=== PATIENT | female | born 1995 | race American Indian/Alaskan Native ===

== ENCOUNTER 2017-05-24 14:51 | Emergency (ER) | payer OTHER ==
[~2017-05-24] VITALS: Ht 165.1 cm; Wt 68.0 kg
== END 2017-05-24 15:42 | disposition home or self-care (01) ==
LOC: ED 14:51
DX: O99.89 Other specified diseases and conditions complicating pregnancy, childbirth and the puerperium (principal); R55 Syncope and collapse; Z3A.00 Weeks of gestation of pregnancy not specified
CPT/HCPCS: 76815; 99284

== ENCOUNTER 2017-06-05 18:29 | Emergency (ER) | payer OTHER ==
[~2017-06-05] VITALS: Ht 165.1 cm; Wt 69.8 kg
== END 2017-06-05 21:27 | disposition home or self-care (01) ==
LOC: ED 18:29
DX: O99.89 Other specified diseases and conditions complicating pregnancy, childbirth and the puerperium (principal); M25.512 Pain in left shoulder; Z87.891 Personal history of nicotine dependence; Z3A.34 34 weeks gestation of pregnancy
CPT/HCPCS: 99282

== ENCOUNTER 2017-07-07 05:13 | Inpatient (IN) | payer OTHER ==
[~2017-07-07] VITALS: Ht 167.6 cm; Wt 61.0 kg
--- NOTE | 2017-07-07 07:42 | PR ---
[facility] [address] [place], [place] [address] Signed Progress Notes IP Datetime Report Generated by CPN: 07/07/2017 07:42 PROGRESS NOTES: [id number] Impression: Normal progression of labor Procedures: Artificial ROM; Sterile Vag Exam; Epidural Placement Plan: Continue present management; Anticipate Vaginal Delivery Informed Consent Obtain: Vaginal Delivery; Risks, Benefits and Alternatives Discussed VITAL SIGNS: [id number] Vital Signs: Reviewed EXAM: [id number] Dilatation: 9.0 Effacement: 95 Station: 0 Uterine Contractions: every two to three minutes MEMBRANES: [id number] Membrane Status: Bulging ROM Note: amniotomy performed - clear moderate amount of fluid Comments: patient with bloody show. AROM performed. Epidural in place. Fetus A: [id number] FHR Baseline: 130's Variability: Moderate 6-25bpm Accelerations: 15X15 Decelerations: None FHR Category: Category I Presentation: Vertex Comments on Fetus A: reactive Fetus B: [id number] Signing Physician: Paulina Davenport MD CC: *Electronically Signed* 07/07/17 0742 PAULINA DAVENPORT MD PATIENT NAME: JEREMY WOLFF PROGRESS NOTE DATE OF : 95 PHYSICIAN: PAULINA DAVENPORT MD RPT #: [id number] REPORT IS CONFIDENTIAL AND NOT TO BE RELEASED WITHOUT AUTHORIZATION
== END 2017-07-08 14:27 | disposition home or self-care (01) | DRG 775 ==
LOC: FBCO 05:13 → FBC 06:00
PROVIDERS: ADMIT Obstetrics & Gynecology
PROC: 10E0XZZ Delivery of Products of Conception, External Approach (ICD-10-PCS; principal; 2017-07-07)
PROC: 10907ZC Drainage of Amniotic Fluid, Therapeutic from Products of Conception, Via Natural or Artificial Opening (ICD-10-PCS; 2017-07-07)
PROC: 00HU33Z Insertion of Infusion Device into Spinal Canal, Percutaneous Approach (ICD-10-PCS; 2017-07-07)
PROC: 3E0R3BZ Introduction of Anesthetic Agent into Spinal Canal, Percutaneous Approach (ICD-10-PCS; 2017-07-07)
DX: O99.02 Anemia complicating childbirth (principal); Z3A.38 38 weeks gestation of pregnancy; Z37.0 Single live birth
CPT/HCPCS: 01960; 36415; 85027; J2590; J3010; J7120

== ENCOUNTER 2018-10-22 19:50 | Emergency (ER) | payer OTHER ==
[~2018-10-22] VITALS: Ht 167.6 cm; Wt 72.6 kg
[2018-10-22] MEDS ORDERED: ADVIL200 MG PO (20:12)
[2018-10-22] MEDS ORDERED: ANUSOL-HC30 GM PR (20:51)
== END 2018-10-22 21:20 | disposition home or self-care (01) ==
LOC: ED 19:50
DX: K64.4 Residual hemorrhoidal skin tags (principal); F17.200 Nicotine dependence, unspecified, uncomplicated; Z88.1 Allergy status to other antibiotic agents; Z88.2 Allergy status to sulfonamides; Z79.899 Other long term (current) drug therapy
CPT/HCPCS: 99282

== ENCOUNTER 2020-01-11 14:38 | Emergency (ER) | payer OTHER ==
[~2020-01-11] VITALS: Ht 167.6 cm; Wt 72.6 kg
--- OUTSIDE RECORDS SUMMARY | ~2020-01-11 | XMS | Clinical Summary ---
Demographics + + + | Address | [address] | | | [place] [address] | + + + | Home Phone | | + + + | Preferred Language | Unknown | + + + | Marital Status | Single | + + + | Congregational Affiliation | Unknown | + + + | Race | Unknown | + + + | Ethnic Group | Unknown | + + + Author + + + | Author | [facility] (Historical as of | | | 04-15-19) | + + + | Organization | [facility] (Historical as of | | | 04-15-19) | + + + | Address | Unknown | + + + | Phone | Unavailable | + + + Support + + +---------+ + | Name | Relationship | Address | Phone | + + +---------+ + | Speedis,Jarad | ECON | Unknown | | + + +---------+ + Care Team Providers + +------+ + | Care Starcher And Tenter Range Feeder Name | Role | Phone | + +------+ + | Loco Duran | PP | | + +------+ + Allergies Not on File Current Medications No known medications Active Problems Not on file Family History + +------+--------+ + | Relation | Name | Status | Comments | + +------+--------+ + | Father | | Alive | | + +------+--------+ + | Mother | | Alive | | + +------+--------+ + Social History + +-------+ +--------+------+ | Tobacco Use | Types | Packs/Day | Years | Date | | | | | Used | | + +-------+ +--------+------+ | Former Smoker | | | | | + +-------+ +--------+------+ + +---+---+---+ | Smokeless Tobacco: | | | | | Never Used | | | | + +---+---+---+ + + +---------+ + | Alcohol Use | Drinks/We | oz/Week | Comments | | | ek | | | + + +---------+ + | No | | | | + + +---------+ + + + + | Sex Assigned at | Date Recorded | | | | + + + | Not on file | | + + + Last Filed Vital Signs + + + + | Vital Sign | Reading | Time Taken | + + + + | Blood Pressure | - | - | + + + + | Pulse | - | - | + + + + | Temperature | - | - | + + + + | Respiratory Rate | - | - | + + + + | Oxygen Saturation | 97% | 09/15/2018 1:14 PM PST | + + + + | Inhaled Oxygen | - | - | | Concentration | | | + + + + | Weight | 75.3 kg (165 lb 14.4 | 09/15/2018 1:14 PM PST | | | oz) | | + + + + | Height | 167.6 cm (5' 6") | 09/15/2018 1:14 PM PST | + + + + | Body Mass Index | 26.78 | 09/15/2018 1:14 PM PST | + + + + Plan of Treatment + + + + + | Health Maintenance | Due Date | Last Done | Comments | + + + + + | Vaccine: HPV (1 - | | | | | Female 3-dose | 0 | | | | series) | | | | + + + + + | Vaccine: | | | | | Dtap/Tdap/Td (1 - | 4 | | | | Tdap) | | | | + + + + + | Cervical Cancer | | | | | Screening (Pap) | 6 | | | + + + + + | Vaccine: Influenza | | | | | (Season Ended) | 0 | | | + + + + + Results Not on filefrom Last 3 Months Insurance + +--------+ +------+-------+ + | Payer | Benefi | Subscriber | Type | Phone | Address | | | t Plan | ID | | | | | | / | | | | | | | Group | | | | | + +--------+ +------+-------+ + | MEDICAID | [employer] | [id number] | | | [address] | | | [place] | | | | [place] | | | [place] | | | | [phone] | | | HAND CLOTH CUTTER | | | | | + +--------+ +------+-------+ + + +--------+ +--------+ + + | Guarantor Name | Accoun | Relation to | Date | Phone | Billing Address | | | t Type | Patient | of | | | | | | | | | | + +--------+ +--------+ + + | JEREMY CANO | Person | Self | [birth year] | Home: | [address] | | | al/Fam | | 1994 | [phone] | [place] | | | [place] | | | [phone] | [address] | + +--------+ +--------+ + +
--- OUTSIDE RECORDS SUMMARY | ~2020-01-11 | XMS | Clinical Summary ---
Demographics + + + | Address | [address] | | | [place] [address] | + + + | Home Phone | | + + + | Preferred Language | Unknown | + + + | Marital Status | Single | + + + | Rastafarian Affiliation | Unknown | + + + | Race | Unknown | + + + | Ethnic Group | Unknown | + + + Author + + + | Author | [facility] (Historical as of | | | 04-15-19) | + + + | Organization | [facility] (Historical as of | | | 04-15-19) [...] Team Providers + +------+ + | Care Palletizer Operator Name | Role | Phone | + [...] +------+-------+ + | MEDICAID | [employer] | [id number] | | | [address] | | | [place] | | | | [place] | | | [place] | | | | [phone] | | | BEAUTY SALES ADVISOR | | | | | + +--------+ [...] Self | [birth year] | Home: | [address] | | | al/Fam | | 1994 | [phone] | [place] | | | [place] | | | [phone] | [phone] | + +--------+ +--------+ + +
--- OUTSIDE RECORDS SUMMARY | ~2020-01-11 | XMS | Clinical Summary ---
Demographics + + + | Address | [address] | | | [place] [address] | + + + | Home Phone | | + + + | Preferred Language | Unknown | + + + | Marital Status | Single | + + + | Sabianism Affiliation | Unknown | + + + | Race | Unknown | + + + | Ethnic Group | Unknown | + + + Author + + + | Author | [facility] | | | and [place] | + + + | Organization | [facility] | | | and [place] | + + + | Address | Unknown | + + + | Phone | Unavailable | + + + Support + + +---------+ + | Name | Relationship | Address | Phone | + + +---------+ + | Jarad Speedis | ECON | Unknown | | + + +---------+ + | Margo Cano | ECON | Unknown | | + + +---------+ + Care Team Providers + +------+ + | Care Production Zone Leader Name | Role | Phone | + +------+ + | No, Physician | PCP | Unavailable | + +------+ + Allergies + + + + + + | Active Allergy | Reactions | Severity | Noted | Comments | | | | | Date | | + + + + + + | Cefazolin | Rash | Low | 12/15/20 | Pt stated allergy | | | | | 16 | to Cefazolin but | | | | | | chart says Keflex. | + + + + + + | Sulfamethoxazole-Tri | Hives | | 08/13/20 | | | methoprim | | | 16 | | + + + + + + Medications + + + +---------+------+------+-------+ | Medication | Sig | Dispensed | Refills | Star | End | Statu | | | | | | t | Date | s | | | | | | Date | | | + + + +---------+------+------+-------+ | ibuprofen | Take 1 tablet by | 30 | 0 | 12/ | | Activ | | (ADVIL,MOTRIN) 600 | mouth every 6 hours | tablet | | /20 | | e | | MG tablet | as needed for Pain. | | | 16 | | | + + + +---------+------+------+-------+ | docusate sodium | Take 200 mg by mouth | 30 | 0 | 12/1 | | Activ | | (COLACE) 100 MG | Twice daily as | capsule | | 7/20 | | e | | capsule | needed for | | | 16 | | | | | Constipation. | | | | | | + + + +---------+------+------+-------+ Active Problems Not on file Family History + +------+--------+ + | Relation | Name | Status | Comments | + +------+--------+ + | Father | | Alive | | + +------+--------+ + | Mother | | Alive | | + +------+--------+ + Social History + +-------+ +--------+ + | Tobacco Use | Types | Packs/Day | Years | Date | | | | | Used | | + +-------+ +--------+ + | Former Smoker | | 0.25 | | Quit: 05/14/2016 | + +-------+ +--------+ + + + +---------+ + | Alcohol Use | Drinks/Week | oz/Week | Comments | + + +---------+ + | No | | | | + + +---------+ + + + + | Sex Assigned at | Date Recorded | | | | + + + | Not on file | | + + + + + + + | Job Start Date | Occupation | Industry | + + + + | Not on file | Not on file | Not on file | + + + + + + + + | Travel History | Travel Start | Travel End | + + + + + + | No recent travel history available. | + + Last Filed Vital Signs + + + + + | Vital Sign | Reading | Time Taken | Comments | + + + + + | Blood Pressure | 113/78 | 08/15/2016 7:46 AM | | | | | PST | | + + + + + | Pulse | 61 | 08/15/2016 7:46 AM | | | | | PST | | + + + + + | Temperature | 36.1 C (97 F) | 08/15/2016 7:46 AM | | | | | PST | | + + + + + | Respiratory Rate | 16 | 08/15/2016 7:46 AM | | | | | PST | | + + + + + | Oxygen Saturation | 98% | 08/14/2016 8:00 PM | | | | | PST | | + + + + + | Inhaled Oxygen | - | - | | | Concentration | | | | + + + + + | Weight | 75.3 kg (165 lb 14.4 | 09/15/2018 1:21 PM | | | | oz) | PST | | + + + + + | Height | 167.6 cm (5' 6") | 09/15/2018 1:21 PM | | | | | PST | | + + + + + | Body Mass Index | 26.78 | 09/15/2018 1:21 PM | | | | | PST | | + + + + + Plan of Treatment + + + + + | Health Maintenance | Due Date | Last Done | Comments | + + + + + | Vaccine: | | | | | Dtap/Tdap/Td (1 - | 6 | | | | Tdap) | | [...] filefrom Last 3 Months Insurance + +--------+ +--------+ +---------+--------+ | Payer | Benefi | Subscriber | Effect | Phone | Address | Type | | | t Plan | ID | beatriz | | | | | | / | | Dates | | | | | | Group | | | | | | + +--------+ +--------+ +---------+--------+ | [employer] | [employer] | [id number] | 08/12/ | [phone] | | Medica | | MEDICAID HMO | HEALTH | | 2016-P | 1 | | id | | | MDCD | | resent | | | | | | [place]MO [place] | | | | | | + +--------+ +--------+ +---------+--------+ + +--------+ +--------+ + + | Guarantor Name | Accoun | Relation to | Date | Phone | Billing Address | | | t Type | Patient | of | | | | | | | | | | + +--------+ +--------+ + + | Rand Cano | Person | Self [birth year] | [address] | | | al/Fam | | 1994 | [phone] | [place] [address] | | | [place] | | | [address] (Home) | | + +--------+ +--------+ + + Advance Directives + + + + + | Type | Date Recorded | Patient | Explanation | | | | Manager Career | | + + + + + | Power of | | | | | Lathe Tender | | | | + + + + + | Advance | 08/13/2016 | | | | Directive | 11:52 AM | | | + + + + + + + + + + | Code Status | Date | Date | Comments | | | Activated | Inactivated | | + + + + + | Full Code | 08/13/2016 | 08/13/2016 | | | | 7:02 AM | 2:31 PM | | + + + + +
--- OUTSIDE RECORDS SUMMARY | ~2020-01-11 | XMS | Encounter Summary ---
Demographics + + + | Address | [address] | | | [place] [address] | + + + | Home Phone | | + + + | Preferred Language | Unknown | + + + | Marital Status | Single | + + + | Mormon Affiliation | Unknown | + + + | Race | Unknown | + + + | Ethnic Group | Unknown | + + + Author + + + | Author | [facility] | | | and [place] | + + + | Organization | [facility] | | | and [place] [...] Team Providers + +------+ + | Care Cda Teacher Name | Role | Phone | + +------+ + | No, Physician | PCP | Unavailable | + +------+ + Reason for Referral Evaluate & Treat (Routine) +--------+ + + + + + | Status | Reason | Specialty | Diagnoses / | Referred By | Referred To | | | | | Procedures | Contact | Contact | +--------+ + + + + + | Closed | Specialty | | Diagnoses | | | | | Services | Services / | Late | Andrea, | | | | Required | | | Shannon Salas, | | | | | and | care in | DO [address] | [address] | [address] | | | | | | trimester | [place], | | | | | | | [place] [address] | | | | | | | Phone: | | | | | | | [phone] | | | | | | | Fax: | | | | | | | [phone] | | +--------+ + + + + + (Routine) +--------+ + + + + + | Status | Reason | Specialty | Diagnoses / | Referred By | Referred To | | | | | Procedures | Contact | Contact | +--------+ + + + + + | Closed | Specialty | | Diagnoses | | | | | Services | and | Late | Andrea, | | | | Required | | | Shannon Salas, | | | | | | care in | DO [address] | | [address] | [address] | | | | | | trimester | [place], | | | | | | | [place] [address] | | | | | | | Phone: | | | | | | | [phone] | | | | | | | Fax: | | | | | | | [phone] | | +--------+ + + + + + Reason for Visit Auth/Cert +--------+--------+ + + + + | Status | Reason | Specialty | Diagnoses / | Referred By | Referred To | | | | | Procedures | Contact | Contact | +--------+--------+ + + + + | | | | | | | +--------+--------+ + + + + Encounter Details +--------+ + + + + | Date | Type | Department | Care Team | Description | +--------+ + + + + | 08/13/ | Hospital | [facility] | Shannon Mendez | Late care | | 2016 - | Encounter | [facility] | DO [address] | in third trimester | | | | [address] | [facility] | (Primary Dx) | | 08/15/ | | [place] | [place] [address] | | | 2015 | | [address] | [phone] | | | | | [phone] | | | +--------+ + + + + Social History + +-------+ +--------+ + | Tobacco Use | Types | Packs/Day | Years | Date | | | | | Used | | + +-------+ +--------+ + | Former Smoker | | 0.25 | | Quit: 05/14/2016 | + +-------+ +--------+ + + +---+---+---+ | Smokeless Tobacco: | | [...] recent travel history available. | + + documented as of this encounter Last Filed Vital Signs + + + [...] + + + + | Weight | 74.8 kg (165 lb) | 08/13/2016 9:22 AM | | | | | PST | | + + + + + | Height | 165.1 cm (5' 5") | 08/13/2016 7:00 AM | | | | | PST | | + + + + + | Body Mass Index | 27.46 | 08/13/2016 7:00 AM | | | | | PST | | + + + + + documented in this encounter Functional Status + + + + | Functional Status | Response | Date of Assessment | + + + + | Are you deaf or do you have serious | No | 08/13/2016 | | difficulty hearing? | | | + + + + | Are you blind or do you have serious | No | 08/13/2016 | | difficulty seeing, even when wearing | | | | glasses? | | | + + + + | Do you have serious difficulty walking or | No | 08/13/2016 | | climbing stairs? (5 years old or older) | | | + + + + | Do you have difficulty dressing or bathing? | No | 08/13/2016 | | (5 years old or older) | | | + + + + | Because of a physical, mental, or emotional | No | 08/13/2016 | | condition, do you have difficulty doing | | | | errands alone such as visiting a doctor's | | | | office or shopping? [15 years old or | | | | older)] | | | + + + + + + + + | Cognitive Status | Response | Date of Assessment | + + + + | Because of a physical, mental, or emotional | No | 08/13/2016 | | condition, do you have serious difficulty | | | | concentrating, remembering, or making | | | | decisions? (5 years old or older) | | | + + + + documented as of this encounter Discharge Summaries Shannon Mendez DO - 08/15/2016 8:32 AM PSTFormatting of this note might be differe nt from the original. Physician Discharge Summary Patient ID: Rand Sandysully [id number] 21 y.o. 1995 Admit date: 08/13/2016 Discharge date and time: 08/15/16 Admitting Physician: Shannon Mendez DO Discharge Physician: Shannon Mendez DO Admission Diagnoses: 1. Late and limited PNC 2. IUP @ 40w5d Discharge Diagnoses: same with delivered Admission Condition: good Discharged Condition: good Indication for Admission: Rand is a 21 y/o who presented at 40w5d EGA for IOL. H er had been complicated by late and limited PNC. She was dated by 28 wk US. Did have Positive chlamydia test in . [place] in June was negative. No other concerns Hospital Course: Rand presented for IOL on 08/13/16. She received epidural for analgesia . Pitocin was initiated. Amniotomy performed. She progressed appropriately and ultimately delivered a VFI 7#7oz, Apgars 8/9 suffering only small bilateral periurethral lacerations. Her PP course was uncomplicated. She was discharged home on PPD#2 without concern. Bottle feeding. Discharge Exam: VSS. Afebrile Gen: NAD HRRR. LCTA Abd: soft. NT. FF Ext: Tr edema b/l LE Disposition: home Patient Instructions: Discharge Medications New Medications Details docusate sodium 100 MG capsule Take 200 mg by mouth Twice daily as needed for Constipation. aka: COLACE ibuprofen 600 MG tablet Take 1 tablet by mouth every 6 hours as needed for Pain. aka: ADVIL,MOTRIN Discontinued Medications 27-0.8 mg multivitamin tablet Activity: activity as tolerated and no sex for 6 weeks Diet: regular diet Wound Care: keep wound clean and dry Follow-up with Dr. Mendez in 6 weeks. Signed: Shannon Mendez DO 08/15/2016 8:32 documented in t his encounter Discharge Instructions Instructions Eileen Nuñez RN - 08/15/2016POSTPARTUM DISCHARGE INSTRUCTIONS Warning Signs Check List Notify your clinician immediately if you are experiencing any of the following: Heavy bleeding from the vagina (blood is bright-red and soaks a pad in an hour or less) Normal bleeding decreases in amount over time and is: Bright-red (lasts two to three days). Pinkish or brown (lasts from about the third day to the tenth day). Creamy or yellow (usually lasts one to two weeks). Discharge from the vagina that has a bad odor. Temperature over 100.4 (38 C) or you feel cold and have the chills (you are shiv ering). Urination that is painful, difficult, or too frequent. Difficulty having a bowel movement. Painful, very red, and swollen incision or leaking of any fluids. Breasts that are full and or/painful (swollen, hot, tight, itchy, lumpy, shiny, flat nip ples, or sore spots with flu-like symptoms). Pain that becomes worse and unrelieved by medication. Trouble breathing, dizziness, or faintness. Crying spells or mood swings that feel out of control. Pain, redness, warmth or firmness in the lower calf. Unusual or excessive swelling in your face or hands. Severe or constant headaches. Blurred vision or spots in front of your eyes. Sudden weight gain of more than one pound a day for several days. Persistent pain in the upper right part of your abdomen. Activity/Exercise Do not drive while you are taking narcotics. If you had a section, try driving maneuvers while parked to ensure no increase in incisional pain. Gradually increase your daily activities until you are back to your normal routine. Rest frequently. Remember to continue to drink plenty of fluids and eat frequently if yo u are . Heavy lifting or other strenuous exertion is unlikely to disrupt your incision or lacera tion but it may cause an increase in pain. Your provider will tell you if additional restric tions apply to you. Bowels and Regularity constipation is common; you make take Docusate sodium or Milk of Magnesia to alleviate discomfort Painful bowel movements or rectal pain may result from hemorrhoids; use Tucks and/or top ical treatment like Anusol-HC. Sitz baths can also help. Normal Bleeding Vaginal spotting may last up to six weeks. It is important that you change your pad on a regular basis. Your menstrual period may occur as early as six weeks to two months after your delivery. Care of Stitches You should feel less discomfort every day from your stitches. Perineal stitches will dissolve within 2-4 weeks. You may shower or bathe with stitches; drip plain or soapy water over the incision and d ry gently with a clean towel. If you have dayo you may shower (no tub bathing), and dry g ently with a clean towel. If you had any dayo that were not removed during your hospitalization they will need to be removed in your provider's office. Steri-strips may fall off on their own or can be removed at post-op visit. Sex/Douching/Tampons Do not place anything in the vagina for the first six weeks after delivery. Your healthcare provider may advise you to wait up to six weeks for intercourse. Once th e bleeding has stopped, it is alright to have intercourse if you feel ready. Keep in mind yo u are at risk of getting . You may find your vagina feels dry, making sex uncomfortable. This can last several hugo hs due to changing hormone levels. To help lubricate your vagina, you may purchase a waterso luble lubricant (e.g., Astroglide) from your local drug store. This will help make intercour se more comfortable. documented in this encounter Medications at Time of Discharge + + + +---------+ + + | Medication | Sig | Dispensed | Refills | Start | End Date | | | | | | Date | | + + + +---------+ + + | docusate sodium | Take 200 mg by mouth | 30 | 0 | 12/17/20 | | | (COLACE) 100 MG | Twice daily as | capsule | | 16 | | | capsule | needed for | | | | | | | Constipation. | | | | | + + + +---------+ + + | ibuprofen | Take 1 tablet by | 30 | 0 | 08/15/20 | | | (ADVIL,MOTRIN) 600 | mouth every 6 hours | tablet | | 16 | | | MG tablet | as needed for Pain. | | | | | + + + +---------+ + + documented as of this encounter Progress Notes Eileen Nuñez RN - 08/15/2016 3:15 PM PSTPt dcd home with FOB and baby. AVS and prescr iptions given. Formula given to get through weekend until WIC can be set up.Electronically s igned by Eileen Nuñez RN at 08/15/2016 3:38 PM Lizet Clancy RN - 08/14/2016 12 :26 PM PSTLactation check in with mother. She declines any desire to breastfeed and requests only bottle. Teaching completed on comfort measures for engorgement to include ice, ibuprof en, cabbage leaves etc. & to avoid heat and any kind of nipple stimulation.Electronicall y signed by Lizet Lopez RN at 08/14/2016 12:28 PM Shannon Lr DO - 08/14 7:50 AM PSTPt seen and examined. Pain well controlled. Lochia decreasing. Bottlefe eding. Voiding and ambulating without difficulty. Denies N/V. No BM as of yet VSS. Afebrile Gen: NAD HRRR. LCTA Abd: soft. NT. FF Ext: Tr edema b/l LE LAbs: 10.9>10.9/32.1<184 A/P: 1. PPD#1, s/p with b/l periurethral lac--stable 2. labs pending. Have called Bal[facility] but unable to reach. Redrawn today 3. Continue routine care. [facility] - 08/13/2016 12:03 PM PSTP t comfortable with epidural. Admits to some lower abdominal discomfort but this is tolerabl e Pitocin at 10mU SVE: 7/-2. Anterior. Stretchy FHTs: 110/mod variability/+accels/ Early decels noted. TOCO q 2-3 min Continue Pitocin per protocol. Anticipate . documented in t his encounter Plan of Treatment + + +--------+ + + | Name | Type | Priori | Associated Diagnoses | Order Schedule | | | | ty | | | + + +--------+ + + | Amb referral to | Outpatient | Routin | Late care | 1 Occurrences | | | Referral | e | in third trimester | starting 08/15/2016 | | | | | | until 08/13/2017 | + + +--------+ + + | Ambulatory referral | Outpatient | Routin | Late care | 1 Occurrences | | to | Referral | e | in third trimester | starting 08/15/2016 | | | | | | until 08/13/2017 | + + +--------+ + + documented as of this encounter Procedures + +--------+ + + + | Procedure Name | Priori | Date/Time | Associated Diagnosis | Comments | | | ty | | | | + +--------+ + + + | CBC NO DIFFERENTIAL | Routin | 08/14/2016 | | Results for this | | | e | 6:40 AM | | procedure are in the | | | | PST | | results section. | + +--------+ + + + | CBC W/AUTO | Routin | 08/13/2016 | | Results for this | | DIFFERENTIAL | e | 4:13 PM | | procedure are in the | | | | PST | | results section. | + +--------+ + + + | OBSTETRICS PANEL | Routin | 08/13/2016 | | Results for this | | | e | 4:13 PM | | procedure are in the | | | | PST | | results section. | + +--------+ + + + | ABO RH | Routin | 08/13/2016 | | Results for this | | | e | 4:13 PM | | procedure are in the | | | | PST | | results section. | + +--------+ + + + | RUBELLA AB, IGG | Routin | 08/13/2016 | | Results for this | | | e | 4:13 PM | | procedure are in the | | | | PST | | results section. | + +--------+ + + + | RAPID PLASMA REAGIN, | Routin | 08/13/2016 | | Results for this | | QUAL | e | 4:13 PM | | procedure are in the | | | | PST | | results section. | + +--------+ + + + | HEPATITIS B SURFACE | Routin | 08/13/2016 | | Results for this | | AG | e | 4:13 PM | | procedure are in the | | | | PST | | results section. | + +--------+ + + + | ANTIBODY SCREEN | Routin | 08/13/2016 | | Results for this | | | e | 4:13 PM | | procedure are in the | | | | PST | | results section. | + +--------+ + + + | DRUGS OF ABUSE, | Routin | 08/13/2016 | | Results for this | | SCREEN, URINE | e | 12:11 PM | | procedure are in the | | | | PST | | results section. | + +--------+ + + + | CBC NO DIFFERENTIAL | STAT | 08/13/2016 | | Results for this | | | | 7:05 AM | | procedure are in the | | | | PST | | results section. | + +--------+ + + + | EXTRA BLOOD BANK | Routin | 08/13/2016 | | Results for this | | TUBE | e | 7:05 AM | | procedure are in the | | | | PST | | results section. | + +--------+ + + + | LABS - EXTERNAL SCAN | | 07/22/2016 | | Results for this | | | | 12:00 AM | | procedure are in the | | | | PST | | results section. | + +--------+ + + + | LABS - EXTERNAL SCAN | | 06/24/2016 | | Results for this | | | | 12:00 AM | | procedure are in the | | | | PDT | | results section. | + +--------+ + + + documented in this encounter Results CBC no Differential (08/14/2016 6:40 AM PST) + + + + + + | Component | Value | Ref Range | Performed | Pathologist | | | | | At | Signature | + + + + + + | WBC | 10.9 | 4.0 - 11.0 K/uL | [facility] | [facility] | | | | | | [facility] | | | | | [facility] - | | | | | | LABORATORY | | + + + + + + | RBC | 3.72 | 3.70 - 5.20 | [facility] | | | | | M/uL | [facility] | | | | | | [facility] | | | | | | [facility] - | | | | | | LABORATORY | | + + + + + + | Hemoglobin | 10.9 (L) | 11.5 - 16.0 | [facility] | | | | | g/dL | [facility] | | | | | | [facility] | | | | | | [facility] - | | | | | | LABORATORY | | + + + + + + | Hematocrit | 32.1 (L) | 34.0 - 47.0 % | [facility] | | | | | | [facility] | | | | | | [facility] | | | | | | [facility] - | | | | | | LABORATORY | | + + + + + + | MCV | 86.2 | 83.0 - 101.0 fL | [facility] | | | | | | [facility] | | | | | | [facility] | | | | | | [facility] - | | | | | | LABORATORY | | + + + + + + | MCH | 29.3 | 28.0 - 35.0 pg | [facility] | | | | | | [facility] | | | | | | [facility] | | | | | | [facility] - | | | | | | LABORATORY | | + + + + + + | MCHC | 33.9 | 32.0 - 36.0 | [facility] | | | | | g/dL | [facility] | | | | | | [facility] | | | | | | [facility] - | | | | | | LABORATORY | | + + + + + + | RDW-CV | 21.1 (H) | <15.0 % | [facility] | | | | | | [facility] | | | | | | [facility] | | | | | | [facility] - | | | | | | LABORATORY | | + + + + + + | Platelet | 184 | 140 - 440 K/uL | [facility] | | | Count | | | [facility] | | | | | | [facility] | | | | | | [facility] - | | | | | | LABORATORY | | + + + + + + | MPV | 7.8 | fL | [facility] | | | | | | [facility] | | | | | | [facility] | | | | | | [facility] - | | | | | | LABORATORY | | + + + + + + + + | Specimen | + + | Blood | + + + + + + + | Performing | Address | City/State/Zipcode | Phone Number | | Organization | | | | + + + + + | [facility] | [address] | [place] | [phone] | | [facility] | | [address] | | | - LABORATORY | | | | + + + + + CBC w/ Auto Differential (08/13/2016 4:13 PM PST) + + + + + + | Component | Value | Ref Range | Performed | Pathologist | | | | | At | Signature | + + + + + + | WBC | 12.8 (H) | 4.0 - 11.0 K/uL | [facility] | | | | | | [facility] | | | | | | [facility] | | | | | [facility] - | | | | | | LABORATORY | | + + + + + + | RBC | 4.17 | 3.70 - 5.20 | [facility] | | | | | M/uL | [facility] | | | | | | [facility] | | | | | | [facility] - | | | | | | LABORATORY | | + + + + + + | Hemoglobin | 12.0 | 11.5 - 16.0 | [facility] | | | | | g/dL | [facility] | | | | | | [facility] | | | | | | [facility] - | | | | | | LABORATORY | | + + + + + + | Hematocrit | 36.2 | 34.0 - 47.0 % | [facility] | | | | | | [facility] | | | | | | [facility] | | | | | | [facility] - | | | | | | LABORATORY | | + + + + + + | MCV | 86.9 | 83.0 - 101.0 fL | [facility] | | | | | | [facility] | | | | | | [facility] | | | | | | [facility] - | | | | | | LABORATORY | | + + + + + + | MCH | 28.9 | 28.0 - 35.0 pg | [facility] | | | [facility] | | | | | [facility] - | | | | | | LAB[facility]ATORY | | + + + + + + | MCHC | 33.2 | 32.0 - 36.0 | [facility] | | | | | g/dL | [facility] | | | | | | [facility] | | | | | | [facility] - | | | | | | LABORATORY | | + + + + + + | RDW-CV | 20.9 (H) | <15.0 % | [facility] | | | | | | [facility] | | | | | | [facility] | | | | | | [facility] - | | | | | | LABORATORY | | + + + + + + | Platelet | 187 | 140 - 440 K/uL | [facility] | | | Count | | | [facility] | | | | | | [facility] | | | | | | [facility] - | | | | | | LABORATORY | | + + + + + + | MPV | 7.8 | fL | [facility] | | | | | | [facility] | | | | | | [facility] | | | | | | [facility] - | | | | | | LABORATORY | | + + + + + + | % | 82.9 (H) | 45.0 - 82.0 % | [facility] | | | Neutrophils | | | [facility] | | | | | | [facility] | | | | | | CENTER - | | | | | | LABORATORY | | + + + + + + | % | 11.3 (L) | 20.0 - 45.0 % | [facility] | | | Lymphocytes | | | [facility] | | | | | | [facility] | | | | | | CENTER - | | | | | | LABORATORY | | + + + + + + | % Monocytes | 4.8 | 4.0 - 12.0 % | [facility] | | | | | | [facility] | | | | | | [facility] | | | | | | [facility] - | | | | | | LABORATORY | | + + + + + + | % | 0.2 | 0.0 - 5.0 % | [facility] | | | Eosinophils | | | [facility] | | | | | | [facility] | | | | | | C[facility] - | | | | | | LABORATORY | | + + + + + + | % Basophils | 0.8 | 0.0 - 1.0 % | [facility] | | | | | | [facility] | | | | | | [facility] | | | | | | [facility] - | | | | | | LABORATORY | | + + + + + + | Absolute | 10.60 (H) | 1.80 - 8.50 | [facility] | | | Neutrophils | | K/uL | [facility] | | | | | | [facility] | | | | | | [facility] - | | | | | | LABORATORY | | + + + + + + | Absolute | 1.40 | 0.60 - 3.20 | [facility] | | | Lymphocytes | | K/uL | [facility] | | | | | | [facility] | | | | | | [facility] - | | | | | | LABORATORY | | + + + + + + | Absolute | 0.60 | 0.00 - 1.00 | [facility] | | | Monocytes | | K/uL | [facility] | | | | | | [facility] | | | | | | C[facility] - | | | | | | LABORATORY | | + + + + + + | Absolute | 0.00 | 0.00 - 0.40 | [facility] | | | Eosinophils | | K/uL | [facility] | | | | | | [facility] | | | | | | C[facility] - | | | | | | LABORATORY | | + + + + + + | Absolute | 0.10 | 0.00 - 0.10 | [facility] | | | Basophils | | K/uL | [facility] | | | | | | [facility] | | | | | | CENTER - | | | | | | LABORATORY | | + + + + + + + + | Specimen | + + | Blood | + + + + + + + | Performing | Address | City/State/Zipcode | Phone Number | | Organization | | | | + + + + + | [facility] | [address] | [place] | [phone] | | [facility] | | [address] | | | - LABORATORY | | | | + + + + + Rapid Plasma Reagin, Qual (08/13/2016 4:13 PM PST) + + + + + + | Component | Value | Ref Range | Performed | Pathologist | | | | | At | Signature | + + + + + + | Rapid | Non-Reactive | Non-Reactive | [facility] | | | Plasma | | | [facility] | | | [facility] | | | [facility] | | | | | | CENTER - | | | | | | LABORATORY | | + + + + + + + + | Specimen | + + | Blood | + + + + + + + | Performing | Address | City/State/Zipcode | Phone Number | | Organization | | | | + + + + + | [facility] | [address] | [place] | [phone] | | [facility] | | [address] | | | - LABORATORY | | | | + + + + + Antibody Screen (08/13/2016 4:13 PM PST) + + + + + + | Component | Value | Ref Range | Performed | Pathologist | | | | | At | Signature | + + + + + + | Antibody | Negative | | [facility] | | | Screen | | | [facility] | | | | | | MEDICAL | | | | | | CENTER - | | | | | | BLOOD BANK | | + + + + + + + + | Specimen | + + | Blood specimen | | (specimen) | + + + + + + + | Performing | Address | City/State/Zipcode | Phone Number | | Organization | | | | + + + + + | [facility] | [address] | [place] | | | [facility] | | [address] | | | - BLOOD BANK | | | | + + + + + ABO Rh (08/13/2016 4:13 PM PST) + + + + + + | Component | Value | Ref Range | Performed | Pathologist | | | | | At | Signature | + + + + + + | ABO | A | | [facility] | | | | | | [facility] | | | | | | [facility]ICAL | | | | | | CENTER - | | | | | | BLOOD BANK | | + + + + + + | Rh Type | Positive | | [facility] | | | | | | [facility] | | | | | | MEDICAL | | | | | | CENTER - | | | | | | BLOOD BANK | | + + + + + + + + | Specimen | + + | Blood specimen | | (specimen) | + + + + + + + | Performing | Address | City/State/Zipcode | Phone Number | | Organization | | | | + + + + + | [facility] | [address] | [place] | | | [facility] | | [address] | | | - BLOOD BANK | | | | + + + + + Hepatitis B Surface Ag (08/13/2016 4:13 PM PST) + + + + + + | Component | Value | Ref Range | Performed | Pathologist | | | | | At | Signature | + + + + + + | Hepatitis B | Non ReactiveComment: | NR | [facility] | | | Surface Ag | Testing Performed: [facility], | | [facility] | | | | [address] | | | | | | [place] [address] | | | | + + + + + + + + | Specimen | + + | Blood specimen | | (specimen) | + + + + + + + | Performing | Address | City/State/Zipcode | Phone Number | | Organization | | | | + + + + + | [facility] | [address] | [place] [address] | [phone] | + + + + + Rubella Ab, IgG (08/13/2016 4:13 PM PST) + + + + + + | Component | Value | Ref Range | Performed | Pathologist | | | | | At | Signature | + + + + + + | Rubella IgG | 20Comment: 10 or | >9 IU/mL | [facility] | | | Ab, Screen | greater: Presumed | | [facility] | | | | immuneTesting Performed: | | | | | | [facility], [address], | | | | | | [place] [address] | | | | + + + + + + + + | Specimen | + + | Blood specimen | | (specimen) | + + + + + + + | Performing | Address | City/State/Zipcode | Phone Number | | Organization | | | | + + + + + | [facility] | [address] | [place] [address] | [phone] | + + + + + Drugs of Abuse, Screen, Urine (08/13/2016 12:11 PM PST) + + + + + + | Component | Value | Ref Range | Performed | Pathologist | | | | | At | Signature | + + + + + + | Amphetamine | Negative | Negative | [facility] | | | Screen, | | | [facility] | | | Urine | | | MEDICAL | | | | | | CENTER - | | | | | | LABORATORY | | + + + + + + | Barbiturate | Negative | Negative | [facility] | | | s Screen, | | | [facility] | | | Urine | | | MEDICAL | | | | | | CENTER - | | | | | | LABORATORY | | + + + + + + | Benzodiazep | Negative | Negative | [facility] | | | latrell | | | [facility] | | | Screen, | | | MEDICAL | | | Urine | | | CENTER - | | | | | | LABORATORY | | + + + + + + | Cannabinoid | Negative | Negative | [facility] | | | s Screen, | | | [facility] | | | Urine | | | MEDICAL | | | | | | CENTER - | | | | | | LABORATORY | | + + + + + + | Cocaine | Negative | Negative | [facility] | | | Screen, | | | [facility] | | | Urine | | | MEDICAL | | | | | | CENTER - | | | | | | LABORATORY | | + + + + + + | Methadone | Negative | Negative | [facility] | | | Screen, | | | [facility] | | | Urine | | | [facility] | | | | | | CENTER - | | | | | | LABORATORY | | + + + + + + | Opiates | Negative | Negative | [facility] | | | Screen, | | [facility] | | | Urine | | | MEDICAL | | | | | | CENTER - | | | | | | LABORATORY | | + + + + + + + + | Specimen | + + | Urine | + + + + + + + | Performing | Address | City/State/Zipcode | Phone Number | | Organization | | | | + + + + + | [facility] | [address] | [place] | [phone] | | [facility] | | [address] | | | - LABORATORY | | | | + + + + + Extra Blood Bank Tube (08/13/2016 7:05 AM PST) + + + + + + | Component | Value | Ref Range | Performed | Pathologist | | | | | At | Signature | + + + + + + | Hold BB | Hold Specimen | | [facility] | | | | [facility] | | | | | | MEDICAL | | | | | | CENTER - | | | | | | BLOOD BANK | | + + + + + + + + | Specimen | + + | Blood specimen | | (specimen) | + + + + + + + | Performing | Address | City/State/Zipcode | Phone Number | | Organization | | | | + + + + + | [facility] | [address] | [place] | | | [facility] | | [address] | | | - BLOOD BANK | | | | + + + + + CBC no Differential (08/13/2016 7:05 AM PST) + + + + + + | Component | Value | Ref Range | Performed | Pathologist | | | | | At | Signature | + + + + + + | WBC | 9.9 | 4.0 - 11.0 K/uL | [facility] | | | | [facility] | | | | | [facility] | | | | | | CENTER - | | | | | | LABORATORY | | + + + + + + | RBC | 4.20 | 3.70 - 5.20 | [facility] | | | | | M/uL | [facility] | | | | | | [facility] | | | | | | CENTER - | | | | | | LABORATORY | | + + + + + + | Hemoglobin | 12.5 | 11.5 - 16.0 | [facility] | | | | | g/dL | [facility] | | | | | | MEDICAL | | | | | | CENTER - | | | | | | LABORATORY | | + + + + + + | Hematocrit | 36.1 | 34.0 - 47.0 % | [facility] | | | | | [facility] | | | | | | [facility]ICAL | | | | | | CENTER - | | | | | | LABORATORY | | + + + + + + | MCV | 85.9 | 83.0 - 101.0 fL | [facility] | | | | | [facility] | | | | | | MEDICAL | | | | | | CENTER - | | | | | | LABORATORY | | + + + + + + | MCH | 29.7 | 28.0 - 35.0 pg | [facility] | | | | | | [facility] | | | | | | MEDICAL | | | | | | CENTER - | | | | | | LABORATORY | | + + + + + + | MCHC | 34.6 | 32.0 - 36.0 | [facility] | | | | | g/dL | [facility] | | | | | | MEDICAL | | | | | | CENTER - | | | | | | LABORATORY | | + + + + + + | RDW-CV | 20.7 (H) | <15.0 % | [facility] | | | | | [facility] | | | | | | MEDICAL | | | | | | CENTER - | | | | | | LABORATORY | | + + + + + + | Platelet | 212 | 140 - 440 K/uL | [facility] | | | Count | | | [facility] | | | | | | MEDICAL | | | | | | CENTER - | | | | | | LABORATORY | | + + + + + + | MPV | 8.3 | fL | [facility] | | | | | [facility] | | | | | | MEDICAL | | | | | | CENTER - | | | | | | LABORATORY | | + + + + + + + + | Specimen | + + | Blood | + + + + + + + | Performing | Address | City/State/Zipcode | Phone Number | | Organization | | | | + + + + + | [facility] | [address] | [place] | [phone] | | [facility] | | [address] | | | - LABORATORY | | | | + + + + + LABS - EXTERNAL SCAN (07/22/2016 12:00 AM PST) + + + | Narrative | Performed At | + + + | Ordered by an | | | unspecified provider. | | + + + LABS - EXTERNAL SCAN (06/24/2016 12:00 AM PDT) + + + | Narrative | Performed At | + + + | Ordered by an | | | unspecified provider. | | + + + documented in this encounter Visit Diagnoses + + | Diagnosis | + + | Late care in third trimester - Primary | + + documented in this encounter Administered Medications + +--------+ +--------+------+------+ | Medication Order | MAR | Action | Dose | Rate | Site | | | Action | Date | | | | + +--------+ +--------+------+------+ | docusate sodium (COLACE) | Given | 08/14/ | 200 mg | | | | capsule 200 mg 200 mg, Oral, | | 16 9:11 | | | | | NIGHTLY, First dose on Yvonne | | PM PST | | | | | 08/13/16 at 2100, Hold for loose | | | | | | | stools, | | | | | | + +--------+ +--------+------+------+ +-------+ +--------+---+---+ | Given | 08/14/20 | 200 mg | | | | | 16 12:48 | | | | | | AM PST | | | | +-------+ +--------+---+---+ +---+---+ | | | +---+---+ + +---------+ + + +---+ | fentaNYL 2 mcg/mL + bupivacaine | New Bag | 08/13/20 | 12 mL/hr | 12 mL/hr | | | 0.125% in saline EPIDURAL at 12 | | 16 7:29 | | | | | mL/hr, EPIDURAL, ONCE, Yvonne | | AM PST | | | | | 16 at 0900, For 1 dose, | | | | | | | Labor and Delivery, | | | | | | | Patient-controlled Bolus Dose | | | | | | | (mL): 5, Lockout Interval (min): | | | | | | | 15 | | | | | | + +---------+ + + +---+ +---+---+ | | | +---+---+ + +-------+ +--------+---+---+ | ibuprofen (ADVIL,MOTRIN) tablet | Given | 08/13/20 | 800 mg | | | | 800 mg 800 mg, Oral, PRN, Pain, | | 16 2:57 | | | | | Pain, Starting Yvonne 08/13/16 at | | PM PST | | | | | 1430, For 1 dose, May give only | | | | | | | after delivery., | | | | | | + +-------+ +--------+---+---+ +---+---+ | | | +---+---+ + +-------+ +--------+---+---+ | ibuprofen (ADVIL,MOTRIN) tablet | Given | 08/14/20 | 800 mg | | | | 800 mg 800 mg, Oral, EVERY 8 | | 16 9:10 | | | | | HOURS PRN, Pain, Starting Yvonne | | PM PST | | | | | 08/13/16 at 1430, If urine output | | | | | | | is less than 240 mL/8 hours (30 | | | | | | | mL/hr) or if signs of bleeding, | | | | | | | contact MD and hold ibuprofen., | | | | | | | | | | | | | + +-------+ +--------+---+---+ +-------+ +--------+---+---+ | Given | 08/14/20 | 800 mg | | | | | 16 8:36 | | | | | | AM PST | | | | +-------+ +--------+---+---+ | Given | 08/14/20 | 800 mg | | | | | 16 12:48 | | | | | | AM PST | | | | +-------+ +--------+---+---+ +---+---+ | | | +---+---+ + +---------+ +--------+-------+---+ | lactated ringers (LR) bolus | New Bag | 08/13/20 | 1,000 | 500 | | | 1,000 mL 1,000 mL, Intravenous, | | 16 7:00 | mLs | mL/hr | | | Administer over 2 Hours, ONCE | | AM PST | | | | | PRN, For SBP < 90mmHg, Starting | | | | | | | Yvonne 08/13/16 at 0832, For 1 dose, | | | | | | | Labor and Delivery | | | | | | + +---------+ +--------+-------+---+ +---+---+ | | | +---+---+ + +---------+ +---------+-------+---+ | lactated ringers (LR) infusion | New Bag | 08/13/20 | 125 mLs | 125 | | | at 125 mL/hr, Intravenous, | | 16 8:00 | | mL/hr | | | CONTINUOUS, Starting Yvonne 08/13/16 | | AM PST | | | | | at 0730, Labor and Delivery | | | | | | + +---------+ +---------+-------+---+ +---+---+ | | | +---+---+ + + + + + +---+ | oxytocin in saline (PITOCIN) 30 | Rate/Dos | 08/13/20 | 11 | 11 mL/hr | | | units/500 mL (60 joceline-units/mL) | e Change | 16 12:30 | joceline-un | | | | infusion 0-999 joceline-units/min | | PM PST | its/min | | | | (0-999 mL/hr), at 0-999 mL/hr, | | | | | | | Intravenous, TITRATED, Starting | | | | | | | Yvonne 12/15/16 at 0730, Low Dose | | | | | | | (Cervical Ripening) Management: | | | | | | | Dose 1-4 mU/min. Begin infusion | | | | | | | at 1 mU/min for 60 minutes, | | | | | | | Increase to 2 mU/min for 60 | | | | | | | minutes, Increase to 4 mU/min and | | | | | | | continue at this level until | | | | | | | Suarez score of 7 or more. | | | | | | | Maximum dose for cervical | | | | | | | ripening = 4mU/min. Standard | | | | | | | (Augmentation/Induction) | | | | | | | Management: Dose 0-40 mU/min. | | | | | | | Begin infusion at 1-2 mU/minute. | | | | | | | Increase at no greater than 2 | | | | | | | mU/min every 30 minutes, until | | | | | | | adequate labor. Maximum standard | | | | | | | dose for augmentation/induction | | | | | | | = 20 mU/min. Call provider to | | | | | | | increase above 20 mU/min. Do not | | | | | | | increase above 40 mU/min. Do not | | | | | | | increase rate if there is | | | | | | | tachysystole ( > 5 contractions | | | | | | | in 10 minutes averaged over 30 | | | | | | | minutes) or concern regarding | | | | | | | tracing. For tachysystole, | | | | | | | indications or increased | | | | | | | baseline uterine tone, notify | | | | | | | provider and stop or decrease | | | | | | | oxytocin infusion per unit policy | | | | | | | until the indication has ceased. | | | | | | | Restart the infusion per policy | | | | | | | or at 50% or less of the previous | | | | | | | rate. Third Stage | | | | | | | Management/Immediate : | | | | | | | Dose 0-999 mU/min. Vaginal | | | | | | | delivery: After delivery of | | | | | | | anterior shoulder or placenta, | | | | | | | 350 mL/hr x hour, then 100 | | | | | | | mL/hr x 3.5 hours. May stop after | | | | | | | 4 hours post-delivery. Titrate | | | | | | | to control bleeding. May | | | | | | | discontinue if fundus firm, | | | | | | | bladder not distended and patient | | | | | | | tolerating oral fluids and pain | | | | | | | meds. delivery: | | | | | | | Anesthesia will manage oxytocin | | | | | | | intraoperatively. Post anesthesia | | | | | | | care, 350 mL/hr x hour, then | | | | | | | 100 mL/hr x 3.5 hours. May stop | | | | | | | after 4 hours post-delivery. | | | | | | | Titrate to control bleeding. May | | | | | | | discontinue if fundus firm, | | | | | | | bladder not distended and patient | | | | | | | tolerating oral fluids and pain | | | | | | | meds., Use oxytocin for | | | | | | | management of: Third stage, Labor | | | | | | | and Delivery | | | | | | + + + + + +---+ + + + + +---+ | Rate/Dose Change | 08/13/20 | 10 | 10 mL/hr | | | | 16 11:00 | joceline-un | | | | | AM PST | its/min | | | + + + + +---+ | Rate/Dose Change | 08/13/20 | 8 | 8 mL/hr | | | | 16 10:15 | joceline-un | | | | | AM PST | its/min | | | + + + + +---+ +---+---+ | | | +---+---+ + +-------+ + +---+---+ | 27-0.8 mg multivitamin | Given | 08/15/20 | 1 tablet | | | | 1 tablet 1 tablet, Oral, DAILY, | | 16 8:40 | | | | | First dose on [facility] 08/13/16 at | | AM PST | | | | | 1500, | | | | | | + +-------+ + +---+---+ +-------+ + +---+---+ | Given | 08/14/20 | 1 tablet | | | | | 16 8:36 | | | | | | AM PST | | | | +-------+ + +---+---+ +---+---+ | | | +---+---+ documented in this encounter
--- OUTSIDE RECORDS SUMMARY | ~2020-01-11 | XMS | Encounter Summary ---
Demographics + + + | Address | [address] | | | [place] [address] | + + + | Home Phone | | + + + | Preferred Language | Unknown | + + + | Marital Status | Single | + + + | Anabaptist Affiliation | Unknown | + + + | Race | Unknown | + + + | Ethnic Group | Unknown | + + + Author + + + | Author | [facility] | | | and [place] | + + + | Organization | [facility] | | | and [place] [...] Team Providers + +------+ + | Care Reading Efficiency Course Director Name | Role | Phone | + [...] | | | | | | | [place] [address] | | | | | | | Phone: | | | | | | | [phone] | | | | | | | Fax: | | | | | | | [phone] | | +--------+ + + + + [...] | | | | | | | [place] [address] | | | | | | | Phone: | | | | | | | [phone] | | | | | | | Fax: | | | | | | | [phone] | | +--------+ + + + + [...] + + | 08/13/ | Hospital | [facility] | Shannon Mendez | Late care | | 2016 - | Encounter | [facility] | DO Maritza [address] | in third trimester | | | | [address] | [facility] | (Primary Dx) | | 08/15/ | | [place] | [place] [address] | | | 2015 | | [address] | [phone] | | | | | [phone] | | | +--------+ + + + [...] Physician Discharge Summary Patient ID: Rand Sandysully [id number] 21 y.o. 1995 Admit date: 08/13/2016 Discharge [...] Continue routine care. [facility] - 08/13/2016 12:03 PM PSTP [...] [address] | [place] | [phone] | | [facility] | | [address] | | | - LABORATORY | | [...] + | [facility] | [address] | [place] | [phone] | | [facility] | | [address] | | | - LABORATORY | | [...] [address] | [place] | [phone] | | [facility] | | [address] | | | - LABORATORY | | [...] ST. | [address] | [place] | | | [facility] | | [address] | | | - BLOOD BANK | [...] + | [facility] | [address] | [place] | | | [facility] | | [address] | | | - BLOOD BANK | [...] | | | | | [place] [address] | | | | + + + [...] [address] | [place] [address] | [phone] | + + + + + Rubella [...] | | | | | [place] [address] | | | | + + + [...] [address] | [place] [address] | [phone] | + + + + + Drugs [...] | + + + + + | [facility] | [address] | [place] | [phone] | | [facility] | | [address] | | | - LABORATORY | | [...] ST. | [address] | [place] | | | [facility] | | [address] | | | - BLOOD BANK | [...] [address] | [place] | [phone] | | [facility] | | [address] | | | - LABORATORY | | [...] | | | | First dose on [facility] 08/13/16 at | | AM PST | [...]
--- OUTSIDE RECORDS SUMMARY | ~2020-01-11 | XMS | Encounter Summary ---
Demographics + + + | Address | [address] | | | [place] [address] | + + + | Home Phone | | + + + | Preferred Language | Unknown | + + + | Marital Status | Single | + + + | Taoism Affiliation | Unknown | + + + | Race | Unknown | + + + | Ethnic Group | Unknown | + + + Author + + + | Author | [facility] | | | and [place] | + + + | Organization | [facility] | | | and [place] [...] Team Providers + +------+ + | Care Voltage Tester Name | Role | Phone | + +------+ + | No, Physician | PCP | Unavailable | + +------+ + Reason for Visit Auth/Cert +--------+--------+ + [...] + + + + | 08/13/ | Anesthesia | [facility] | Mann Parks | | | 2016 | Event | [facility] | MD Mary [address] | | | | | DEL[address] | [facility] | | | | | [facility] | [place] [address] | | | | | [place] [address] | [phone] | | | | | [phone] | | | +--------+ + + + + Anesthesia Record + + + + + | Procedure Name | Responsible | Anesthesia Start | Anesthesia Stop Time | | | Anesthesiologist | Time | | + + + + + | NEURAXIAL LABOR | Mann Winchesterayush Parks, | 08/13/16 0712 | 08/13/16 1340 | | ANALGESIA/ANESTHESIA | MD | | | + + + + + +----+---+ + + | Da | T | Event | Comment | | te | i | | | | | m | | | | | e | | | +----+---+ + + | 12 | 0 | | | | /1 | 7 | | | | 5/ | 1 | | | | 20 | 0 | | | | 16 | | | | +----+---+ + + | | 0 | An Start | Reassessment prior to anesthesia induction/procedure. | | | 7 | | | | | 1 | | | | | 2 | | | +----+---+ + + | | 0 | Pre-Procedu | | | | 7 | ral Timeout | | | | 1 | Completed | | | | 2 | | | +----+---+ + + | | 0 | Block Start | | | | 7 | | | | | 1 | | | | | 2 | | | +----+---+ + + | | 0 | Test Dose | | | | 7 | | | | | 2 | | | | | 4 | | | +----+---+ + + | | 0 | Epidural | | | | 7 | Bolus | | | | 2 | | | | | 6 | | | +----+---+ + + | | 0 | Epidural | | | | 7 | Infusion | | | | 2 | Started | | | | 9 | | | +----+---+ + + | | 0 | AN Block | | | | 7 | End | | | | 3 | | | | | 1 | | | +----+---+ + + | | 0 | Out of OR | | | | 8 | Device Stop | | | | 2 | | | | | 5 | | | +----+---+ + + | | 1 | Baby Deliv | | | | 3 | | | | | 4 | | | | | 0 | | | +----+---+ + + | | 1 | An Stop | Patient handed off to recovery nurse. | | | 4 | | | | | 0 | | | +----+---+ + + +------+ | Meds | +------+ + +-------+ | Name | Total | + +-------+ | lidocaine 1.5%-EPINEPHrine | 3 mL | | 1:200,000 (PF) | | + +-------+ | lidocaine 2% (Epidural) | 5 mL | + +-------+ | fentaNYL 2 mcg/mL + bupivacaine | 0 mL | | 0.125% in saline EPIDURAL | | + +-------+ + + | Name | + + | N2O Flow Rate (L/Min) | + + | O2 Flow Rate (L/Min) | + + | Insp O2 | + + | Air Flow Rate (L/Min) | + + + + | No blood administrations on file. | + + +--------+ + + + | Type | Details | Placement | Removal | +--------+ + + + | Periph | 08/13/16; 0700; Left; Distal; | 08/13/16 0700 by | 08/14/16 1412 by | | eral | Forearm; szhg-ypt-bhqhau catheter | Lydia martinez | Lizet Zamora RN | | IV | system; 18 gauge; Hematology, | MAGI Hughes | | | | Blood Bank; 0; distraction, | | | | | tolerated well; no longer | | | | | indicated; short term use; | | | | | 08/14/16; 1412 | | | +--------+ + + + | Epidur | 08/13/16; 0724 (created via | 08/13/16 0724 by Tor | 08/13/16 1400 by | | al/Spi | procedure documentation); 10; | Mary Parks MD | Lizet Zamora RN | | nal | Cap, mask, sterile gloves and | | | | | drape. Patient seated, Chloraprep | | | | | to lower back, allowed to dry. | | | | | Sterile drape. Local. | | | | | Needle advanced until loss of | | | | | resistance. Catheter threaded | | | | | easily. Negative test dose. | | | | | Dosed as per anesthesia record. | | | | | Sterile dressing. Patient | | | | | tolerated well.; 08/13/16 (by | | | | | previous shift, unknown); 1400 | | | | | (by previous shift, unknown) | | | +--------+ + + + | Urethr | 08/13/16; 1000; indicated for | 08/13/16 1000 by Fabian | 08/13/16 1530 by Caren | | al | acute urinary | Denis Frost RN | Denis Frost RN | | Cathet | retention/obstruction; All | | | | er | elements; All elements; All | | | | | elements; indwelling single lumen | | | | | catheter; 100% silicone; 14; | | | | | None; 1; 10; 10; none; drainage | | | | | bag to dependent drainage; | | | | | 08/13/16; 1530 | | | +--------+ + + + documented in this encounter Social History + +-------+ +--------+ + | [...] this encounter Last Filed Vital Signs + +---------+ + + | Vital Sign | Reading | Time Taken | Comments | + +---------+ + + | Blood Pressure | 107/61 | 08/13/2016 8:21 AM | | | | | PST | | + +---------+ + + | Pulse | - | - | | + +---------+ + + | Temperature | - | - | | + +---------+ + + | Respiratory Rate | - | - | | + +---------+ + + | Oxygen Saturation | 99% | 08/13/2016 8:23 AM | | | | | PST | | + +---------+ + + | Inhaled Oxygen | - | - | | | Concentration | | | | + +---------+ + + | Weight | - | - | | + +---------+ + + | Height | - | - | | + +---------+ + + | Body Mass Index | - | - | | + +---------+ + + documented in this encounter Functional [...] + + documented as of this encounter Plan of Treatment Not on filedocumented as of this encounter Procedures + +--------+ + + + | Procedure Name | Priori | Date/Time | Associated Diagnosis | Comments | | | ty | | | | + +--------+ + + + | ANE EPIDURAL NOTE | Routin | 08/13/2016 | | Results for this | | | e | 8:26 AM | | procedure are in the | | | | PST | | results section. | + +--------+ + + + documented in this encounter Results Anesthesia Epidural Note (08/13/2016 8:26 AM PST) + + + | Narrative | Performed At | + + + | Mann Parks MD 08/13/2016 8:26 Neuraxial Procedure | | | Note 08/13/2016 7:24 Procedure: epidural catheter placement | | | Provider requested procedure: Dr. Shannon Mendez Indication: | | | labor analgesia Preprocedure check: patient identified, | | | risks/benefits discussed, preevaluation including airway assessment | | | complete, consent obtained, timeout performed, reassessment prior to | | | procedure, monitors applied and supplemental oxygen applied | | | Patient position: sitting Preparation: chlorhexidine/isopropyl | | | alcohol, 1% lidocaine infiltration, Local anesthetic infiltration | | | volume: 3 mL Procedure level: L3-4 Approach: midline Needle: Tuohy | | | Needle size: 17 g Needle length: 9 cm Loss of resistance to: | | | saline with air bubble Loss of resistance: 6 cm Catheter depth at | | | skin: 10 cm Medication administered through: catheter Negative | | | findings: no blood aspirated, no CSF and no paresthesia Test dose | | | response: negative Attempts: 1 Ease of procedure: easy Dressing: | | | transparent dressing and tape Performing provider: MANN PARKS | | | MARY Comments: Cap, mask, sterile gloves and drape. Patient | | | seated, Chloraprep to lower back, allowed to dry. Sterile | | | drape. Local. Needle advanced until loss of resistance. | | | Catheter threaded easily. Negative test dose. Dosed as per | | | anesthesia record. Sterile dressing. Patient tolerated well. | | | Please see anesthesia record or flowsheet for vital sign | | | documentation and see anesthesia record or MAR for all medication | | | documentation. Electronically Signed by: Mann Parks MD | | | ESig date/time: 08/13/2016 8:26 | | | | | + + + documented in this encounter Visit Diagnoses Not on filedocumented in this encounter Administered Medications + +--------+ +-------+------+------+ | Medication Order | MAR | Action | Dose | Rate | Site | | | Action | Date | | | | + +--------+ +-------+------+------+ | lidocaine (PF) 2% injection | Given | 08/13/20 | 5 mLs | | | | EPIDURAL, PRN, Starting Yvonne | | 16 7:26 | | | | | 16 at 0726, Anesthesia | | AM PST | | | | | Intra-op | | | | | | + +--------+ +-------+------+------+ +---+---+ | | | +---+---+ + +-------+ +-------+---+---+ | lidocaine 1.5%-EPINEPHrine | Given | 08/13/20 | 3 mLs | | | | 1:200,000 (PF) injection | | 16 7:24 | | | | | EPIDURAL, PRN, Starting Yvonne | | AM PST | | | | | 08/13/16 at 0724, Anesthesia | | | | | | | Intra-op | | | | | | + +-------+ +-------+---+---+ +---+---+ | | | +---+---+ documented in this encounter"
--- OUTSIDE RECORDS SUMMARY | ~2020-01-11 | XMS | Clinical Summary ---
Demographics + + + | Address | [address] | | | [place] [address] | + + + | Home Phone | | + + + | Preferred Language | Unknown | + + + | Marital Status | Single | + + + | Nondenominational Affiliation | Unknown | + + + | Race | Unknown | + + + | Ethnic Group | Unknown | + + + Author + + + | Author | [facility] | | | and [place] | + + + | Organization | [facility] | | | and [...] Team Providers + +------+ + | Care Spindraw Operator Name | Role | Phone | [...] | [employer] | [employer] | [id number] | 08/12/ | [phone] | | [employer] | | MEDICAID HMO [...] Person | Self | [birth year] | [address] | | | al/Fam | | 1994 | [phone] | [place] [address] | | | tyson | | | 6 (Home) | | + +--------+ +--------+ + + Advance Directives + + + + + | Type | Date Recorded | Patient | Explanation | | | | Architectural Model Maker | | + + + + + | Power of | | | | | Statistical Machine Servicer | | | | + + + [...]
--- OUTSIDE RECORDS SUMMARY | ~2020-01-11 | XMS | Encounter Summary ---
Demographics + + + | Address | [address] | | | [place] [address] | + + + | Home Phone | | + + + | Preferred Language | Unknown | + + + | Marital Status | Single | + + + | Jehovah'S Witness Affiliation | Unknown | + + + | Race | Unknown | + + + | Ethnic Group | Unknown | + + + Author + + + | Author | [facility] | | | and [place] | + + + | Organization | [facility] | | | and [...] Team Providers + +------+ + | Care Mine Supervisor Name | Role | Phone | + [...] + + | 08/13/ | Anesthesia | [facility] | [place] | | | 2016 | Event | [facility] AND | MD Mary [address] | | | | | DELIVERY [address] | [facility] | | | | | [facility] [place] [address] | | | | | [place] [address] | [phone] | | | | | [phone] | | | +--------+ + + + + Anesthesia Record + + + + + | Procedure Name | Responsible | Anesthesia Start | Anesthesia Stop Time | | | Anesthesiologist | Time | | + + + + + | NEURAXIAL LABOR | Mann [place] Parks, | 08/13/16 0712 | 08/13/16 1340 [...] 1412 by | | eral | Forearm; [id number] catheter | Lydia martinez | Lizet Zamora [...]
[~2020-01-11 14:38] MED LIST: ADVIL200 MG PO; ANUSOL-HC30 GM PR
== END 2020-01-11 15:18 | disposition home or self-care (01) ==
LOC: ED 14:38
PROC: 0XQVXZZ Repair Right Little Finger, External Approach (ICD-10-PCS; principal; 2020-01-11)
DX: S61.216A Laceration without foreign body of right little finger without damage to nail, initial encounter (principal); Z88.2 Allergy status to sulfonamides; Z88.1 Allergy status to other antibiotic agents; W25.XXXA Contact with sharp glass, initial encounter
CPT/HCPCS: 12001; 99282-25

== ENCOUNTER 2023-08-09 13:32 | Emergency (ER) | payer OTHER ==
[~2023-08-09] VITALS: Ht 167.6 cm; Wt 60.6 kg
[2023-08-09 14:09] LABS: BASOPHILS 0.2 % (0-2); EOSINOPHILS 0.4 % (0-6); HEMATOCRIT 40.2 % (35.0-50.0); HEMOGLOBIN 13.8 g/dL (12.0-18.0); LYMPHOCYTES 16.2 % (24-44); MCH 31.9 (27-36); MCHC 34.4 g/dl (30-36); MCV 92.8 fl (81-99); MONOCYTES 5.7 % (0-12); NEUTROPHILS 77.5 % (39-80); PLATELET COUNT 373 K/uL (140-440); RBC 4.33 M/ul (4.3-5.7); RDW 13.4 (10.5-15.0)
[2023-08-09 14:23] LABS: ALBUMIN 3.3 g/dL (3.4-5.0); ALBUMIN/GLOBULIN RATIO 0.77 (1.1-2.4); ANION GAP 8.6 (7-21); BILIRUBIN, TOTAL 0.2 ng/dL (0.2-1.0); BUN/CREATININE RATIO 6.25 (6.0-28.6); CALCIUM 8.5 mg/dL (8.5-10.1); CREATININE, SERUM 0.64 mg/dL (0.55-1.02); POTASSIUM 3.6 mmol/L (3.5-5.1); PROTEIN, TOTAL 7.6 g/dL (6.4-8.2)
[2023-08-09 14:40] LABS: INFLUENZA B NAA NEGATIVE (NEGATIVE); RESPIRATORY SYNCYTIAL VIR NAA NEGATIVE (NEGATIVE)
[2023-08-09] MEDS ORDERED: CLEOCIN HCL300 MG PO (15:29)
[2023-08-09] MEDS ORDERED: HYDROCODON-ACE1 EA10 PO (15:29)
[2023-08-09] MEDS ORDERED: ONDANSETRON ODT4 MG PO (15:29)
[2023-08-09] MEDS ORDERED: PREDNISONE20 MG PO (15:29)
[2023-08-09 15:56] VITALS: BP 109/73
== END 2023-08-09 15:58 | disposition home or self-care (01) ==
LOC: ED 13:32
PROVIDERS: Emergency Medicine
DX: J36 Peritonsillar abscess (principal); Z88.2 Allergy status to sulfonamides; Z88.1 Allergy status to other antibiotic agents; Z20.822 Contact with and (suspected) exposure to COVID-19
CPT/HCPCS: 36415; 70491; 80053; 84703; 85025; 86308; 87502; 87651; 96375; 99283-25; C9803; J1100; J1885; J2405; J3490; J7030; Q9967; U0002